=== PATIENT | female | born 1975 | race Hispanic/Latino ===

== ENCOUNTER → 2020-06-12 | Outpatient (CLI) | payer BC | LOC: US 12:04 | PROVIDERS: ATTEND Family Medicine | DX: R10.9 Unspecified abdominal pain (principal) | CPT/HCPCS: 76700 ==

== ENCOUNTER 2020-09-05 10:08 | Emergency (ER) | payer BC ==
[~2020-09-05] VITALS: Ht 172.7 cm; Wt 81.6 kg
[2020-09-05 11:02] LABS: CLARITY,URINE CLEAR (CLEAR); COLOR,URINE YELLOW (YELLOW); KETONES,URINE NEGATIVE (NEGATIVE); LEUKOCYTE ESTERASE ,URINE NEGATIVE (NEGATIVE); NITRITE,URINE NEGATIVE (NEGATIVE); PROTEIN,URINE DIPSTICK NEGATIVE (NEGATIVE); URINE UROBILINOGEN 0.2 mg/dL (0.2 - 1)
[2020-09-05] MEDS: ONDANSETRON HCL INJ 2MG/ML 2ML 2 MG/ML VIAL IV PRN (11:06)
[2020-09-05] MEDS: FENTANYL CITRATE/PF 100MCG/2 ML INJ IV PRN (11:06)
[2020-09-05 11:09] LABS: BASOPHILS % 0.3 % (0.0-1.0); EOSINOPHILS # (AUTO) 0.1 (0.0-0.4); EOSINOPHILS % 1.2 % (0.0-6.0); HEMATOCRIT 39.6 % (34.2-44.1); LYMPHOCYTES # (AUTO) 2.1 (1.0-3.2); LYMPHOCYTES % 20.2 % (18.0-39.1); MEAN CORPUSCULAR HEMOGLOBIN 29.8 pg (28-32); MEAN CORPUSCULAR HGB CONC 32.8 g/dL (31-35); MEAN CORPUSCULAR VOLUME 90.8 fL (81-99); MONOCYTES # (AUTO) 0.6 (0.2-0.8); NEUTROPHILS # (AUTO) 7.3 (2.1-6.9); NEUTROPHILS % 71.8 % (38.7-80.0); PLATELET COUNT 218 x10e3/uL (140-360); RED BLOOD COUNT 4.36 x10e6/uL (3.6-5.1); RED CELL DISTRIBUTION WIDTH 13.1 % (11.7-14.4)
[2020-09-05 11:18] LABS: BACTERIA,URINE RARE /HPF; EPITHELIAL CELLS,URINE FEW /LPF; WBC,URINE (MAN) 0-5 /HPF (0-5)
[2020-09-05 11:19] LABS: ALANINE AMINOTRANSFERASE 41 IU/L (0-55); ALBUMIN 3.8 g/dL (3.5-5.0); ALKALINE PHOSPHATASE 90 IU/L (40-150); ANION GAP 12.9 mmol/L (8-16); BLOOD UREA NITROGEN < 5 mg/dL (7-26); CALCIUM 8.9 mg/dL (8.4-10.2); CARBON DIOXIDE 24 mmol/L (22-29); CHLORIDE 106 mmol/L (98-107); CREATININE, SERUM 0.67 mg/dL (0.57-1.11); EST GLOMERULAR FILTRATION RATE 95 ML/MIN (60-); GLUCOSE 102 mg/dL (74-118); POTASSIUM 3.9 mmol/L (3.5-5.1); SODIUM 139 mmol/L (136-145)
[2020-09-05] MEDS: SODIUM CHLORIDE 0.9% 1000ML 1,000 ML IV STA (11:21)
[2020-09-05 11:22] LABS: BUN/CREATININE RATIO 7 (6-25)
[2020-09-05 11:51] LABS: LIPASE 13 U/L (8-78)
[2020-09-05] MEDS ORDERED: SODIUM CHLORIDE 0.9% 50ML 50 ML ONE (11:53)
[2020-09-05] MEDS ORDERED: IOPAMIDOL 370 MG/ML 200 ML INFUS..BTL INJ ONE (11:53)
[2020-09-05] MEDS ORDERED: AUGMENTIN 875-1 EACH PO (13:13)
[2020-09-05] MEDS ORDERED: ONDANSETRON ODT4 MG PO (13:16)
== END 2020-09-05 13:33 | disposition home or self-care (01) ==
LOC: ER 10:25
DX: R10.31 Right lower quadrant pain (principal); M54.5 Low back pain; K57.92 Diverticulitis of intestine, part unspecified, without perforation or abscess without bleeding; R51.9 Headache, unspecified; Z20.822 Contact with and (suspected) exposure to COVID-19
CPT/HCPCS: 36415; 74177; 80053; 81001; 83690; 84702; 85025; 99284; J2405; J3010; J7030; Q9967; U0002

== ENCOUNTER → 2020-10-20 | Day surgery (SDC) | payer BC ==
[~2020-10-20] MED LIST: AUGMENTIN 875-1 EACH PO; MAALOX MAXIMUM355 ML PO; ONDANSETRON HCL INJ 2MG/ML 2ML 2 MG/ML VIAL ONE; ONDANSETRON ODT4 MG PO; PROPOFOL IV EMULSION 10 MG/ML 20 ML VIAL ONE
[2020-10-20 10:50] VITALS: BP 107/74
== END | disposition home or self-care (01) ==
LOC: OR 07:43
PROVIDERS: ATTEND Internal Medicine Gastroenterology
DX: K59.00 Constipation, unspecified (principal); D12.0 Benign neoplasm of cecum; D12.5 Benign neoplasm of sigmoid colon; K29.70 Gastritis, unspecified, without bleeding; K25.9 Gastric ulcer, unspecified as acute or chronic, without hemorrhage or perforation; K29.80 Duodenitis without bleeding; K57.92 Diverticulitis of intestine, part unspecified, without perforation or abscess without bleeding; K20.90 Esophagitis, unspecified without bleeding; K44.9 Diaphragmatic hernia without obstruction or gangrene; K64.8 Other hemorrhoids; K76.0 Fatty (change of) liver, not elsewhere classified; Z01.812 Encounter for preprocedural laboratory examination; Z20.822 Contact with and (suspected) exposure to COVID-19; Z87.891 Personal history of nicotine dependence
CPT/HCPCS: 43239; 43450; 45380; 45385; 81025; C9113; J2405; J2704; U0002

== ENCOUNTER 2021-03-28 08:28 | Emergency (ER) | payer BC ==
[~2021-03-28] VITALS: Ht 172.7 cm; Wt 81.6 kg
[~2021-03-28 08:28] MED LIST changes: -ONDANSETRON HCL INJ 2MG/ML 2ML 2 MG/ML VIAL ONE; -PROPOFOL IV EMULSION 10 MG/ML 20 ML VIAL ONE
[2021-03-28 08:50] LABS: BASOPHILS % 0.4 % (0.0-1.0); EOSINOPHILS # (AUTO) 0.1 (0.0-0.4); EOSINOPHILS % 1.1 % (0.0-6.0); HEMATOCRIT 40.8 % (34.2-44.1); HEMOGLOBIN 13.6 g/dL (12.0-16.0); LYMPHOCYTES # (AUTO) 1.8 (1.0-3.2); LYMPHOCYTES % 16.3 % (18.0-39.1); MEAN CORPUSCULAR HEMOGLOBIN 30.2 pg (28-32); MEAN CORPUSCULAR HGB CONC 33.3 g/dL (31-35); MEAN CORPUSCULAR VOLUME 90.7 fL (81-99); MONOCYTES # (AUTO) 0.8 (0.2-0.8); MONOCYTES % 6.9 % (4.4-11.3); NEUTROPHILS # (AUTO) 8.3 (2.1-6.9); PLATELET COUNT 233 x10e3/uL (140-360)
[2021-03-28 08:59] LABS: CLARITY,URINE CLEAR (CLEAR); COLOR,URINE YELLOW (YELLOW); KETONES,URINE NEGATIVE (NEGATIVE); LEUKOCYTE ESTERASE ,URINE MODERATE (NEGATIVE); NITRITE,URINE NEGATIVE (NEGATIVE); PROTEIN,URINE DIPSTICK NEGATIVE (NEGATIVE); URINE UROBILINOGEN 0.2 mg/dL (0.2 - 1)
[2021-03-28 09:07] LABS: BACTERIA,URINE MODERATE /HPF; EPITHELIAL CELLS,URINE MODERATE /LPF; WBC,URINE (MAN) 21-50 /HPF (0-5)
[2021-03-28 09:10] LABS: ALBUMIN 4.2 g/dL (3.5-5.0); ALBUMIN/GLOBULIN RATIO 1.1 (0.8-2.0); ANION GAP 14.8 mmol/L (8-16); CALCIUM 9.4 mg/dL (8.4-10.2); CREATININE, SERUM 0.74 mg/dL (0.57-1.11); POTASSIUM 3.8 mmol/L (3.5-5.1)
[2021-03-28] MEDS ORDERED: CIPROFLOXACIN 500 MG TAB PO STA (10:22)
[2021-03-28] MEDS ORDERED: METRONIDAZOLE 500 MG TAB PO STA (10:22)
[2021-03-28] MEDS ORDERED: ONDANSETRON ODT4 MG PO (10:28)
[2021-03-28] MEDS ORDERED: METRONIDAZOLE500 MG PO (10:28)
[2021-03-28] MEDS ORDERED: CIPRO500 MG PO (10:28)
[2021-03-28] MEDS ORDERED: ACETAMINOPHEN-1 EAC4 PO (10:28)
[2021-03-28] MEDS ORDERED: ONDANSETRON HCL INJ 2MG/ML 2ML 2 MG/ML VIAL IV ONE (10:30)
[2021-03-28] MEDS ORDERED: KETOROLAC TROMETHAMINE 30 MG/ML VIAL IV ONE (10:30)
[2021-03-28 10:41] VITALS: BP 108/74
== END 2021-03-28 10:43 | disposition home or self-care (01) ==
LOC: ER 08:35
DX: R10.31 Right lower quadrant pain (principal); N39.0 Urinary tract infection, site not specified; K57.32 Diverticulitis of large intestine without perforation or abscess without bleeding; R11.0 Nausea; K76.0 Fatty (change of) liver, not elsewhere classified
CPT/HCPCS: 36415; 74176; 80053; 81001; 81025; 83690; 85025; 93005; 99284; J1885; J2405

== ENCOUNTER 2021-09-24 10:15 | Inpatient (IN) | payer BC ==
[~2021-09-24] VITALS: Ht 175.3 cm; Wt 97.5 kg
[~2021-09-24 10:15] MED LIST changes: +ACETAMINOPHEN-1 EAC4 PO; +CIPRO500 MG PO; +METRONIDAZOLE500 MG PO
[2021-09-24] MEDS ORDERED: ONDANSETRON HCL INJ 2MG/ML 2ML 2 MG/ML VIAL IV STA (10:23)
[2021-09-24] MEDS ORDERED: SODIUM CHLORIDE 0.9% 1000ML 1,000 ML IV ONE (10:30)
[2021-09-24] MEDS ORDERED: Morphine 2mg Syringe 2 MG/ML SYR IV ONE (11:30)
[2021-09-24 11:38] LABS: BASOPHILS % 0.2 % (0.0-1.0); EOSINOPHILS # (AUTO) 0.1 (0.0-0.4); EOSINOPHILS % 0.5 % (0.0-6.0); HEMATOCRIT 42.1 % (34.2-44.1); HEMOGLOBIN 14.1 g/dL (12.0-16.0); LYMPHOCYTES # (AUTO) 1.7 (1.0-3.2); LYMPHOCYTES % 12.5 % (18.0-39.1); MEAN CORPUSCULAR HEMOGLOBIN 30.2 pg (28-32); MEAN CORPUSCULAR HGB CONC 33.5 g/dL (31-35); MEAN CORPUSCULAR VOLUME 90.1 fL (81-99); MONOCYTES # (AUTO) 0.7 (0.2-0.8); MONOCYTES % 5.2 % (4.4-11.3); NEUTROPHILS # (AUTO) 11.2 (2.1-6.9); NEUTROPHILS % 81.2 % (38.7-80.0); PLATELET COUNT 256 x10e3/uL (140-360); RED BLOOD COUNT 4.67 x10e6/uL (3.6-5.1); RED CELL DISTRIBUTION WIDTH 12.4 % (11.7-14.4)
[2021-09-24 11:43] LABS: CLARITY,URINE CLOUDY (CLEAR); COLOR,URINE YELLOW (YELLOW); LEUKOCYTE ESTERASE ,URINE TRACE (NEGATIVE); NITRITE,URINE POSITIVE (NEGATIVE)
[2021-09-24 11:44] LABS: BACTERIA,URINE MODERATE /HPF; EPITHELIAL CELLS,URINE MANY /LPF; KETONES,URINE NEGATIVE (NEGATIVE); PROTEIN,URINE DIPSTICK NEGATIVE (NEGATIVE); RBC,URINE 0-5 /HPF (0-5); URINE UROBILINOGEN 0.2 mg/dL (0.2 - 1)
[2021-09-24 12:12] LABS: ALANINE AMINOTRANSFERASE 61 IU/L (0-55); ALBUMIN/GLOBULIN RATIO 0.9 (0.8-2.0); ALKALINE PHOSPHATASE 87 IU/L (40-150); ANION GAP 17.8 mmol/L (8-16); BLOOD UREA NITROGEN 6 mg/dL (7-26); BUN/CREATININE RATIO 8 (6-25); CALCIUM 9.2 mg/dL (8.4-10.2); CARBON DIOXIDE 20 mmol/L (22-29); CHLORIDE 104 mmol/L (98-107); CREATININE, SERUM 0.74 mg/dL (0.57-1.11); GLUCOSE 109 mg/dL (74-118); LIPASE 13 U/L (8-78); POTASSIUM 3.8 mmol/L (3.5-5.1); SODIUM 138 mmol/L (136-145)
[2021-09-24] MEDS ORDERED: SODIUM CHLORIDE 0.9% 1000ML 1,000 ML IV SCH (14:30)
[2021-09-24] MEDS ORDERED: DIPHENHYDRAMINE HCL INJ 50 MG/ML VIAL IV ONE (15:00)
[2021-09-24] MEDS: CIPROFLOXACIN 400 MG/D5W 200ML 200 ML IV SCH (15:39)
[2021-09-24] MEDS ORDERED: IOPAMIDOL 370 MG/ML 100 ML INFUS..BTL INJ ONE (17:50)
[2021-09-24 18:01] VITALS: BP 105/63
[2021-09-24] MEDS: METRONIDAZOLE 500MG/NS 100ML 100 ML IV SCH (18:12)
[2021-09-24 20:00] VITALS: BP 95/68
[2021-09-24 20:25] VITALS: BP 95/68
[2021-09-24 22:45] VITALS: BP 95/68
[2021-09-24] MEDS ORDERED: DIPHENHYDRAMINE HCL 25 MG CAP PO PRN (23:45)
[2021-09-24] MEDS ORDERED: BENZONATATE 100 MG CAP PO PRN (23:45)
[2021-09-24] MEDS ORDERED: HYDRALAZINE HCL 20 MG/ML VIAL IV PRN (23:45)
[2021-09-24] MEDS ORDERED: SIMETHICONE 80 MG CHEW PO PRN (23:45)
[2021-09-24] MEDS ORDERED: DEXTROSE 50% SYRINGE 50 ML IV PRN (23:45)
[2021-09-24] MEDS ORDERED: Morphine 2mg Syringe 2 MG/ML SYR IV PRN (23:45)
[2021-09-24] MEDS ORDERED: ACETAMINOPHEN 325 MG TAB PO PRN (23:45)
[2021-09-24] MEDS: DEXTROSE 5%/0.9% SOD CHL 1,000 ML IV SCH (23:45)
[2021-09-24] MEDS ORDERED: LIDOCAINE 4% PATCH TP PRN (23:45)
[2021-09-24] MEDS ORDERED: MELATONIN 5 MG TABLET PO PRN (23:45)
[2021-09-24] MEDS ORDERED: POTASSIUM CHLORIDE 20 MEQ TAB CR PO PRN (23:45)
[2021-09-24] MEDS ORDERED: ALBUTEROL/IPRATROPIUM 3 ML NEB NEB PRN (23:45)
[2021-09-25] VITALS (9 sets, daily range): BP systolic 92–115; BP diastolic 56–75
[2021-09-25] MEDS: METRONIDAZOLE 500MG/NS 100ML 100 ML IV SCH ×3 (00:34→17:44)
[2021-09-25] MEDS: CIPROFLOXACIN 400 MG/D5W 200ML 200 ML IV SCH ×2 (04:24→15:55)
[2021-09-25 04:52] LABS: BASOPHILS % 0.3 % (0.0-1.0); EOSINOPHILS # (AUTO) 0.1 (0.0-0.4); HEMATOCRIT 34.7 % (34.2-44.1); HEMOGLOBIN 11.8 g/dL (12.0-16.0); LYMPHOCYTES # (AUTO) 1.8 (1.0-3.2); LYMPHOCYTES % 16.3 % (18.0-39.1); MEAN CORPUSCULAR HEMOGLOBIN 30.3 pg (28-32); MONOCYTES # (AUTO) 0.8 (0.2-0.8); MONOCYTES % 6.9 % (4.4-11.3); NEUTROPHILS # (AUTO) 8.4 (2.1-6.9); NEUTROPHILS % 75.1 % (38.7-80.0); PLATELET COUNT 212 x10e3/uL (140-360); RED CELL DISTRIBUTION WIDTH 12.5 % (11.7-14.4)
[2021-09-25 05:11] LABS: ANION GAP 14.9 mmol/L (8-16); CALCIUM 8.2 mg/dL (8.4-10.2); CREATININE, SERUM 0.69 mg/dL (0.57-1.11); POTASSIUM 3.9 mmol/L (3.5-5.1)
[2021-09-25] MEDS: DEXTROSE 5%/0.9% SOD CHL 1,000 ML IV SCH ×3 (09:14→17:45)
[2021-09-25] MEDS: DOCUSATE SODIUM 100 MG CAP PO PRN ×2 (09:14→17:52)
[2021-09-25] MEDS: ONDANSETRON HCL INJ 2MG/ML 2ML 2 MG/ML VIAL IV PRN (12:59)
[2021-09-25] MEDS: ENOXAPARIN SOD INJ 40 MG/0.4 ML SYR SC SCH (17:00)
[2021-09-26] VITALS (8 sets, daily range): BP systolic 89–141; BP diastolic 53–81
[2021-09-26] MEDS: METRONIDAZOLE 500MG/NS 100ML 100 ML IV SCH ×4 (00:16→23:53)
[2021-09-26] MEDS: DEXTROSE 5%/0.9% SOD CHL 1,000 ML IV SCH ×3 (02:15→22:19)
[2021-09-26] MEDS: CIPROFLOXACIN 400 MG/D5W 200ML 200 ML IV SCH ×3 (02:45→15:15)
[2021-09-26] MEDS ORDERED: CIPRO500 MG PO (13:11)
[2021-09-26] MEDS ORDERED: FLAGYL PO (13:12)
[2021-09-26] MEDS ORDERED: CIPROFLOXACIN 500 MG TAB PO SCH (14:00)
[2021-09-26 14:05] LABS: BASOPHILS % 0.5 % (0.0-1.0); EOSINOPHILS # (AUTO) 0.2 (0.0-0.4); EOSINOPHILS % 3.6 % (0.0-6.0); HEMATOCRIT 34.7 % (34.2-44.1); HEMOGLOBIN 11.3 g/dL (12.0-16.0); LYMPHOCYTES # (AUTO) 1.5 (1.0-3.2); LYMPHOCYTES % 25.8 % (18.0-39.1); MEAN CORPUSCULAR HEMOGLOBIN 30.1 pg (28-32); MEAN CORPUSCULAR HGB CONC 32.6 g/dL (31-35); MEAN CORPUSCULAR VOLUME 92.5 fL (81-99); MONOCYTES # (AUTO) 0.5 (0.2-0.8); MONOCYTES % 8.3 % (4.4-11.3); NEUTROPHILS # (AUTO) 3.5 (2.1-6.9); NEUTROPHILS % 61.5 % (38.7-80.0); PLATELET COUNT 212 x10e3/uL (140-360); RED BLOOD COUNT 3.75 x10e6/uL (3.6-5.1); RED CELL DISTRIBUTION WIDTH 12.3 % (11.7-14.4)
[2021-09-26] MEDS ORDERED: METRONIDAZOLE 500 MG TAB PO SCH (16:00)
[2021-09-26] MEDS: ENOXAPARIN SOD INJ 40 MG/0.4 ML SYR SC SCH (16:56)
[2021-09-26] MEDS: PANTOPRAZOLE SOD 40 MG TABEC PO SCH (20:16)
[2021-09-26] MEDS: DOCUSATE SODIUM 100 MG CAP PO PRN (20:23)
[2021-09-27 00:15] VITALS: BP 100/79
[2021-09-27 01:03] LABS: % IRON SATURATION 14 % (15-50); IRON 45 ug/dL (50-170); TOTAL IRON BINDING CAPACITY 330 ug/dL (261-478); TRANSFERRIN 236 mg/dL (180-382)
[2021-09-27] MEDS: CIPROFLOXACIN 400 MG/D5W 200ML 200 ML IV SCH ×2 (02:28→14:03)
[2021-09-27 04:53] VITALS: BP 110/66
[2021-09-27] MEDS: DEXTROSE 5%/0.9% SOD CHL 1,000 ML IV SCH (06:17)
[2021-09-27] MEDS: PANTOPRAZOLE SOD 40 MG TABEC PO SCH (08:14)
[2021-09-27] MEDS: METRONIDAZOLE 500MG/NS 100ML 100 ML IV SCH (08:16)
[2021-09-27 08:19] VITALS: BP 98/61
[2021-09-27 09:17] VITALS: BP 98/61
[2021-09-27 11:32] VITALS: BP 109/71
[2021-09-27] MEDS: ONDANSETRON HCL INJ 2MG/ML 2ML 2 MG/ML VIAL IV PRN (15:07)
== END 2021-09-27 15:45 | disposition home or self-care (01) | DRG 392 ==
LOC: ER 10:18 → ERHOLD 14:28 → MED/SURG 18:01 → OBSVTOIN 09-26 15:35
PROVIDERS: ADMIT Internal Medicine; ATTEND Internal Medicine
DX: K57.32 Diverticulitis of large intestine without perforation or abscess without bleeding (principal); N17.9 Acute kidney failure, unspecified; D35.02 Benign neoplasm of left adrenal gland; Z20.822 Contact with and (suspected) exposure to COVID-19; K59.00 Constipation, unspecified; E86.0 Dehydration; K76.0 Fatty (change of) liver, not elsewhere classified
CPT/HCPCS: 0223U; 36415; 74177; 80048; 80053; 81001; 82607; 82746; 83540; 83690; 84466; 84702; 85025; 85045; 99284; G0378; J1200; J1650; J2270; J2405; J2543; J7030; J7042; Q9967

== ENCOUNTER 2022-07-28 05:25 | Emergency (ER) | payer BC ==
[~2022-07-28] VITALS: Ht 175.3 cm; Wt 97.5 kg
[~2022-07-28 05:25] MED LIST changes: +FLAGYL PO; +KETOROLAC TROME10 MG PO; +MEDROL4 M2 PO; +METHOCARBAMOL750 MG PO
[2022-07-28 05:32] VITALS: O2SAT 100
[2022-07-28] MEDS ORDERED: LIDOCAINE HCL 1% LOCAL INJ 20 ML VIAL INJ STA (05:45)
[2022-07-28] MEDS ORDERED: LIDOCAINE HCL 1% LOCAL INJ 20 ML VIAL ONE (05:47)
[2022-07-28] MEDS ORDERED: PREDNISONE20 MG PO (05:47)
[2022-07-28] MEDS ORDERED: AZITHROMYCIN250 MG PO (05:47)
[2022-07-28] MEDS ORDERED: VENTOLIN HFA18 GM INH (05:47)
[2022-07-28] MEDS ORDERED: ULTRAM 50MG50 MG PO (05:52)
== END 2022-07-28 05:52 | disposition home or self-care (01) ==
LOC: ER 05:31
DX: H66.91 Otitis media, unspecified, right ear (principal); J06.9 Acute upper respiratory infection, unspecified; H10.9 Unspecified conjunctivitis; M54.9 Dorsalgia, unspecified; G89.29 Other chronic pain; Z87.19 Personal history of other diseases of the digestive system
CPT/HCPCS: 99283; J2001

== ENCOUNTER 2023-09-29 06:32 | Emergency (ER) | payer BC, OTHER ==
[~2023-09-29] VITALS: Ht 172.7 cm; Wt 95.3 kg
[~2023-09-29 06:32] MED LIST changes: +AZITHROMYCIN250 MG PO; +PREDNISONE20 MG PO; +ULTRAM 50MG50 MG PO; +VENTOLIN HFA18 GM INH
[2023-09-29 06:50] VITALS: TEMP 98.1
[2023-09-29 08:21] LABS: BASOPHILS % 0.3 % (0.0-1.0); EOSINOPHILS # (AUTO) 0.1 (0.0-0.4); EOSINOPHILS % 1.2 % (0.0-6.0); HEMATOCRIT 42.3 % (34.2-44.1); HEMOGLOBIN 14.3 g/dL (12.0-16.0); LYMPHOCYTES # (AUTO) 2.1 (1.0-3.2); LYMPHOCYTES % 18.8 % (18.0-39.1); MEAN CORPUSCULAR HGB CONC 33.8 g/dL (31-35); MEAN CORPUSCULAR VOLUME 91.8 fL (81-99); MONOCYTES # (AUTO) 0.8 (0.2-0.8); MONOCYTES % 7.1 % (4.4-11.3); NEUTROPHILS # (AUTO) 8.1 (2.1-6.9); NEUTROPHILS % 72.3 % (38.7-80.0); PLATELET COUNT 232 x10e3/uL (140-360); RED BLOOD COUNT 4.61 x10e6/uL (3.6-5.1); RED CELL DISTRIBUTION WIDTH 12.4 % (11.7-14.4); WHITE BLOOD COUNT 11.19 x10e3/uL (4.8-10.8)
[2023-09-29] MEDS ORDERED: IOPAMIDOL 370 MG/ML 100 ML INFUS..BTL INJ ONE (08:26)
[2023-09-29] MEDS: SODIUM CHLORIDE 0.9% 1000ML 1,000 ML IV ONE ×2 (08:31→08:32)
[2023-09-29] MEDS: ONDANSETRON HCL INJ 2MG/ML 2ML 2 MG/ML VIAL IV STA (08:32)
[2023-09-29 08:50] LABS: ALBUMIN 4.4 g/dL (3.5-5.0); ALBUMIN/GLOBULIN RATIO 1.3 (0.8-2.0); ANION GAP 16.1 mmol/L (8-16); BILIRUBIN,TOTAL 0.6 mg/dL (0.2-1.2); CALCIUM 9.9 mg/dL (8.4-10.2); CREATININE, SERUM 0.82 mg/dL (0.57-1.11); POTASSIUM 4.1 mmol/L (3.5-5.1); TOTAL PROTEIN 7.9 g/dL (6.5-8.1)
[2023-09-29 10:10] VITALS: PULSE 72; RESP 16; O2SAT 99
== END 2023-09-29 10:10 | disposition home or self-care (01) ==
LOC: ER 06:40
DX: R10.32 Left lower quadrant pain (principal); K57.32 Diverticulitis of large intestine without perforation or abscess without bleeding; K76.0 Fatty (change of) liver, not elsewhere classified; D35.02 Benign neoplasm of left adrenal gland; R11.0 Nausea; M54.9 Dorsalgia, unspecified; G89.29 Other chronic pain
CPT/HCPCS: 36415; 74177; 80053; 85025; 99284; J2405; J7030; Q9967

== ENCOUNTER 2024-04-20 11:34 | Emergency (ER) | payer OTHER ==
[~2024-04-20] VITALS: Ht 172.7 cm; Wt 90.7 kg
[2024-04-20 12:02] VITALS: PULSE 51; RESP 18; TEMP 98.1
[2024-04-20 12:21] LABS: BASOPHILS % 0.6 % (0.0-1.0); EOSINOPHILS # (AUTO) 0.3 (0.0-0.4); EOSINOPHILS % 3.8 % (0.0-6.0); HEMATOCRIT 38.8 % (34.2-44.1); HEMOGLOBIN 13.7 g/dL (12.0-16.0); LYMPHOCYTES # (AUTO) 2.2 (1.0-3.2); LYMPHOCYTES % 30.7 % (18.0-39.1); MEAN CORPUSCULAR HEMOGLOBIN 31.2 pg (28-32); MEAN CORPUSCULAR HGB CONC 35.3 g/dL (31-35); MEAN CORPUSCULAR VOLUME 88.4 fL (81-99); MONOCYTES # (AUTO) 0.4 (0.2-0.8); MONOCYTES % 5.9 % (4.4-11.3); NEUTROPHILS # (AUTO) 4.2 (2.1-6.9); NEUTROPHILS % 58.9 % (38.7-80.0); PLATELET COUNT 210 x10e3/uL (140-360); RED BLOOD COUNT 4.39 x10e6/uL (3.6-5.1); RED CELL DISTRIBUTION WIDTH 12.1 % (11.7-14.4)
[2024-04-20 12:25] LABS: BILIRUBIN,URINE NEGATIVE (NEGATIVE); CLARITY,URINE CLEAR (CLEAR); COLOR,URINE YELLOW (YELLOW); GLUCOSE, URINE NEGATIVE (NEGATIVE); KETONES,URINE NEGATIVE (NEGATIVE); LEUKOCYTE ESTERASE ,URINE SMALL (NEGATIVE); NITRITE,URINE NEGATIVE (NEGATIVE); PH,URINE 6 (5 - 7); PROTEIN,URINE DIPSTICK NEGATIVE (NEGATIVE); URINE UROBILINOGEN 0.2 mg/dL (0.2 - 1)
[2024-04-20 12:26] LABS: PREGNANCY TEST, URINE NEGATIVE (NEGATIVE)
[2024-04-20 12:27] LABS: RBC,URINE 0-5 /HPF (0-5)
[2024-04-20 12:28] LABS: BACTERIA,URINE FEW /HPF; EPITHELIAL CELLS,URINE FEW /LPF; TRANSITIONAL EPI CELLS,URINE MODERATE
[2024-04-20 12:50] LABS: ALBUMIN 4.2 g/dL (3.5-5.0); ALBUMIN/GLOBULIN RATIO 1.2 (0.8-2.0); ANION GAP 16.1 mmol/L (8-16); BILIRUBIN,TOTAL 0.6 mg/dL (0.2-1.2); CALCIUM 9.8 mg/dL (8.4-10.2); CREATININE, SERUM 0.83 mg/dL (0.57-1.11); POTASSIUM 4.1 mmol/L (3.5-5.1); TOTAL PROTEIN 7.6 g/dL (6.5-8.1)
[2024-04-20] MEDS ORDERED: NAPROSYN500 MG PO (13:53)
[2024-04-20] MEDS ORDERED: ONDANSETRON ODT4 MG PO (13:53)
[2024-04-20] MEDS ORDERED: MACROBID 100 M100 MG PO (13:53)
[2024-04-20] MEDS: NITROFURANTOIN MACROCRYSTALS 100 MG CAP PO ONE (14:31)
[2024-04-20] MEDS: KETOROLAC TROMETHAMINE 30 MG/ML VIAL IV STA (14:32)
[2024-04-20] MEDS ORDERED: DICYCLOMINE HCL20 MG PO (14:51)
[2024-04-20 15:28] VITALS: BP 110/68; PULSE 79; RESP 18; TEMP 97; O2SAT 99
== END 2024-04-20 15:29 | disposition home or self-care (01) ==
LOC: ER 12:02
DX: R10.31 Right lower quadrant pain (principal); R10.32 Left lower quadrant pain; N39.0 Urinary tract infection, site not specified; M54.9 Dorsalgia, unspecified; G89.29 Other chronic pain; Z87.19 Personal history of other diseases of the digestive system
CPT/HCPCS: 36415; 74176; 80053; 81001; 81025; 83690; 85025; 99284; J1885

== ENCOUNTER 2024-10-15 22:04 | Emergency (ER) | payer OTHER ==
[~2024-10-15 22:04] MED LIST changes: +DICYCLOMINE HCL20 MG PO; +MACROBID 100 M100 MG PO; +NAPROSYN500 MG PO
== END 2024-10-15 22:53 | disposition left against medical advice (07) ==
LOC: ER 22:09
DX: S09.93XA Unspecified injury of face, initial encounter (principal)

== ENCOUNTER 2024-11-03 13:30 | Emergency (ER) | payer OTHER ==
[~2024-11-03] VITALS: Ht 170.2 cm; Wt 88.0 kg
[2024-11-03 13:42] VITALS: TEMP 97.8
[2024-11-03 15:18] LABS: BASOPHILS % 0.4 % (0.0-1.0); EOSINOPHILS % 2.3 % (0.0-6.0); LYMPHOCYTES % 28.6 % (18.0-39.1); MONOCYTES % 5.8 % (4.4-11.3); NEUTROPHILS % 62.7 % (38.7-80.0); RED CELL DISTRIBUTION WIDTH 12.7 % (11.7-14.4)
[2024-11-03 15:32] LABS: EST GLOMERULAR FILTRATION RATE 108 ML/MIN (>=60); INR 1.19
[2024-11-03] MEDS: SODIUM CHLORIDE 0.9% 1000ML 1,000 ML IV STA (16:13)
[2024-11-03 16:48] VITALS: PULSE 55; RESP 19
[2024-11-03] MEDS: KETOROLAC TROMETHAMINE 30 MG/ML VIAL IV STA (16:52)
[2024-11-03 18:10] VITALS: BP 112/68; O2SAT 100
== END 2024-11-03 16:48 | disposition home or self-care (01) ==
LOC: ER 14:11
DX: R06.02 Shortness of breath (principal); R07.89 Other chest pain; M54.9 Dorsalgia, unspecified; G89.29 Other chronic pain; Z87.19 Personal history of other diseases of the digestive system; F17.210 Nicotine dependence, cigarettes, uncomplicated
CPT/HCPCS: 36415; 71045; 80053; 83880; 84484; 85025; 85379; 85610; 85730; 93005; 99284; J1885; J7030